=== PATIENT | male | born 1935 | race Caucasian/White ===

== ENCOUNTER 2018-11-04 14:14 | Inpatient (IN) ==
[2018-11-04 15:15] LABS: Hematocrit 36.3 % (42.0-52.0); Hemoglobin 11.6 gm/dL (13.5-18.0); Mean Cell Volume 97.3 fl (78-100); Mean Corpuscular Hemoglobin 31.1 pg (27-31); Mean Platelet Volume 10.3 fl (8-11.3); Platelet Count 161 K/mm3 (150-450); Red Blood Count 3.73 M/mm3 (4.7-6.0); Red Cell Distribution Width 14.6 % (11.5-14.0); White Blood Count 20.9 K/mm3 (4.0-10.5)
[2018-11-04 15:21] LABS: Total Cells Counted 100
[2018-11-04 15:29] LABS: Albumin * 2.4 gm/dl (3.4-5.0); Anion Gap 13.4 mmol/L (6.8-13.8); BUN/Creatinine Ratio 15.9 (9.0-21.6); Bilirubin, Total 1.2 mg/dL (0.0-1.1); Carbon Dioxide 27.3 mmol/L (24-32.6); Potassium 4.7 mmol/L (3.4-4.6); Total Protein 7.2 gm/dL (6.2-8.2)
[2018-11-04 15:33] LABS: Eosinophil 1 % (0-3); Lymphocyte 8 % (20-51); Monocyte 7 % (0-9); Neutrophil 84 % (42-75); Neutrophil # 17.6 K/mm3 (1.3-6.0); Platelet Estimate Normal (NORMAL)
[2018-11-04 15:34] LABS: Anisocytosis Trace; Poikilocytosis Trace
[2018-11-04 15:59] LABS: INR 3.38 INR (0.92-1.08); Prothrombin Time (Patient) 31.9 Seconds (9.1-10.7)
[2018-11-04 16:00] LABS: Partial Thrombolplastin Time 54.4 Seconds (24-32)
[2018-11-04 17:15] LABS: Urine Bilirubin Negative (NEGATIVE); Urine Blood 50 /ul (NEGATIVE); Urine Ketone Negative (NEGATIVE); Urine Nitrite Negative (NEGATIVE); Urine Protein 30 mg/dL (NEGATIVE); Urine Specific Gravity 1.025 SP.GR. (1.005-1.030); Urine Urobilinogen Normal (NORMAL)
[2018-11-04 17:26] LABS: Urine Appearance Clear (CLEAR); Urine Color Pale Yellow; Urine RBC 0-5 /hpf (0-5); Urine WBC None Seen /hpf (0-5)
[2018-11-04 17:27] LABS: Urine Bacteria TRACE
--- NOTE | 2018-11-04 18:12 | ERNOTE ---
Trauma/Assault HPI - Narrative Date of Service: 11/04/18 - General Stated Complaint: fall hip pain Time Seen by Provider: 11/04/18 14:32 Source: patient, family Exam Limitations: no limitations - Immun/Allergies/Home Medications Immunizations: IMMUNIZATION HX Immunizations Up to Date Yes History of Influenza Vaccine Yes Hx Pneumococcal Vaccination Yes Allergies/Adverse Reactions: Allergies atorvastatin [From Lipitor] Allergy (Verified 11/04/18 14:22) Muscle Spasms cortisone [Cortisone] Allergy (Verified 11/04/18 14:22) fenofibrate nanocrystallized [From Tricor] Allergy (Verified 11/04/18 14:22) fenofibrate,micronized [From Tricor] Allergy (Verified 11/04/18 14:22) Home Medications: HOME MEDICATIONS Calcium Carbonate/Vitamin D3 [Calcium 600 + Vit D 400 Tablet] 1 ea PO 1200 04/23/14 [Last Taken Unknown] Glucosam/Chondr/Collagn/Hyalur [Glucosamine & Chondroitin Cap] 1 ea PO BID 04/23/14 [Last Taken Unknown] Aspirin 81 mg PO DAILY 06/19/17 [Last Taken Unknown] dutasteride 0.5 mg capsule 0.5 mg PO DAILY 05/10/18 [Last Taken Unknown] geriatric multivit with iron and minerals tablet 1 tab PO DAILY 05/10/18 [Last Taken Unknown] warfarin 4 mg tablet 4 mg PO DAILY #30 tab 09/12/18 [Last Taken Unknown] mirtazapine 15 mg tablet 15 mg PO DAILY #60 tab 10/03/18 [Last Taken Unknown] ferrous sulfate 325 mg (65 mg iron) tablet 325 mg PO DAILY 11/01/18 [Last Taken Unknown] warfarin 2 mg tablet 2 mg PO Q OTHER DAY 11/01/18 [Last Taken Unknown] levothyroxine 137 mcg tablet 137 mcg PO DAILY #30 tab 11/02/18 [Last Taken Unknown] Carvedilol [Coreg] 6.25 mg PO BID 11/04/18 [Last Taken Unknown] - History of Present Illness Narrative: patient has had progressiiive wweakness for last several weeks with frequent fall, hx of a-fib and chf, recently has had elevated inr and pharmacy has been regulating to adjust Location Occurred: Reports: home Pain Location: Reports: lower extremity Method of Injury: Reports: fall Severity: mild Modifying Factors - (Improves): Reports: rest Modifying Factors - (Worsens): Reports: movement Loss of Consciousness: Reports: no loss of consciousness Associated Symptoms - Trauma: Reports: denies symptoms Review of Systems - Review of Systems Constitutional: Present: See HPI, weakness, fatigue, malaise EYE: Present: no symptoms reported ENT: Present: no symptoms reported Respiratory: Present: See HPI, shortness of breath Cardiology: Present: no symptoms reported Gastrointestinal/Abdominal: Present: no symptoms reported Genitourinary: Present: no symptoms reported Musculoskeletal: Present: See HPI, muscle pain, muscle stiffness, joint pain Skin: Present: no symptoms reported Neurological: Present: no symptoms reported Endocrine: Present: no symptoms reported Hematologic/Lymphatic: Present: no symptoms reported Psych: Present: no symptoms reported All Other Systems: All systems neg except as marked Medical History (Updated 09/13/18 @ 18:53 by Juice Edouard DO) Olecranon bursitis of left elbow (Chronic) Allowed to auto resolve. Reevaluate in 2 months. 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) Falls frequently (Acute) Contusion of left hip (Acute) Acute hip pain (Acute) BPH (benign prostatic hyperplasia) (Chronic) Major depressive disorder, recurrent, moderate (Chronic) Depressive disorder (Chronic) Rule out major depressive disorder Insomnia (Acute) Generalized anxiety disorder (Acute) Atrial fibrillation (Chronic) Anxiety Atrial fibrillation Chronic knee pain Depression Diabetes Enlarged prostate Falls frequently Hypothyroid Insomnia Seasonal allergic rhinitis Short-term memory loss Vertigo Cornea transplant recipient History of transesophageal echocardiography (LEDY) Lower GI bleed Surgical History: Surgical History (Updated 07/29/18 @ 13:59 by Brook Crespo LPN) Aortic aneurysm Hernia History of arthroscopic knee surgery History of cardiac cath History of heart valve replacement Hx of appendectomy Family History: Family History (Updated 05/10/18 @ 10:53 by Bessy Sanchez LPN) Father CVA (cerebral vascular accident) Alcoholism Mother CVA (cerebral vascular accident) Cancer Social History: (Last Reviewed 11/04/18 @ 14:30 by Bessie Duckworth RN) Social History: adopted: No foster care: No senior care: No Marital status: / lives independently: Yes household members: none number of children: 4 caregiver/support person: No current occupational status: retired Highest education level completed: high school graduate Tobacco: Smoking Status: Never smoker Alcohol: alcohol intake: never Substance Use: substance use type: does not use Dietary Habits: caffeine: No Physical Exam - Physical Exam General Appearance: Present: mild distress, anxious Head Exam: Present: normal inspection, no evidence of injury Eye Exam: Normal inspection: bilateral, PERRL: bilateral, EOMI: bilateral Ears, Nose, Throat: Present: normal ENT inspection, normal pharynx Neck: Present: normal inspection, nontender Respiratory: Present: no respiratory distress, crackles, rales Cardiovascular/Chest: Present: irregularly irregular Gastrointestinal/Abdominal: Present: normal bowel sounds, nontender, nondistended, soft, no organomegaly Back Exam: Present: normal inspection, normal range of motion, no CVA tenderness Extremity Exam: Present: normal except - - pain over right greater trochanter Neurological Exam: Present: alert, oriented, normal mood/affect, no motor/sensory deficits Skin Exam: Present: normal color, warm/dry Lymphatic Exam: Present: no adenopathy - C-Spine cleared by: Neg history & exam Progress - Date and Time Seen: Date and Time: 11/04/18 18:21 condition unchanged - Results and Orders Patient's Lab Results:: I have reviewed the patient's lab results. - Vital Signs Patient's Vital Signs:: I have reviewed the patient's vital signs. Vital Signs: Vital Signs 11/04/18 14:15 11/04/18 16:17 11/04/18 16:21 Temperature 36.8 C Pulse Rate 120 H 93 93 Respiratory Rate 14 20 Blood Pressure 123/67 111/59 O2 Sat by Pulse Oximetry 96 95 11/04/18 16:59 11/04/18 17:11 Temperature Pulse Rate 105 H 94 Respiratory Rate 21 H 18 Blood Pressure 105/64 102/68 O2 Sat by Pulse Oximetry 94 95 - EKG EKG #1 EKG: atrial fibrillation EKG read: Interp. by me - X-Ray X-Ray #1 X-Ray: hip - hip no ossus deformity Interpretation: Interp. by me - cardiomegaly, possiblre pneumonia - Progress/Reassessment Chief Complaint: Fall Progress:: Unchanged - Transfer of Care Expected Disposition: Admit Plan - Plan Plan: case discussed with dr lagunas too admit to observation r/o pneumonia Departure Clinical Impression: Pneumonia - Departure Disposition: Short Term Hospital Inpatient Condition: Stable Critical Care Time - Critical Care Critical Time Spent:: No
[2018-11-04] MEDS ORDERED: DILTIAZEM HCL 5 MG/ML VIAL IV ONE (18:32)
[2018-11-04] MEDS: NORMAL SALINE 1,000 ML IV PRN (19:03)
[2018-11-04] MEDS ORDERED: ACETAMINOPHEN 325 MG TABLET PO PRN (21:25)
[2018-11-04] MEDS ORDERED: MELATONIN 3,000 MCG TABLET PO PRN (22:11)
--- NOTE | 2018-11-04 22:16 | HP ---
Chief Complaint - Chief Complaint Date of Service: 11/04/18 Time of Service: 22:18 Chief Complaint: I have been feeling weak, and had multiple falls, and I have had chills History of Present Illness: 82-year-old male with past medical history of atrial fibrillation, currently on anticoagulants, depression, cardiac valve replacement, anxiety disorder, insomnia, BPH, hypothyroidism, issues with balance, was evaluated in the ER due to recently reported generalized weakness and multiple unexplained falls patient also reports persistent productive cough that is worse in the morning. However he denied any fever but says sometimes he gets chills. Patient had a normal temperature upon arriving to our facility. Patient's family reported to the ER physician that he has not been himself it appears more confused than usual, they did report an episode where the patient was unable to complete a sentence. Patient had a recent fall where he fell on his left side and subsequently reported right hip pain but x-ray of the involved limb done in the ER today was negative for any acute fractures. Chest x-ray was also performed and that was negative for any acute cardiopulmonary findings. However labs done on admission demonstrate an elevated WBC and elevated BNP. Given this patient's progressive weakness, productive cough, and reported occasional chills as well as an leukocytosis on labs patient will be admitted for observation and a rule out of bronchopneumonia. Medical History (Updated 11/04/18 @ 22:16 by Cortney Vasquez MD) Olecranon bursitis of left elbow (Chronic) Allowed to auto resolve. Reevaluate in 2 months. 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) Falls frequently (Acute) Contusion of left hip (Acute) Acute hip pain (Acute) BPH (benign prostatic hyperplasia) (Chronic) Major depressive disorder, recurrent, moderate (Chronic) Depressive disorder (Chronic) Rule out major depressive disorder Insomnia (Acute) Generalized anxiety disorder (Acute) Atrial fibrillation (Chronic) Anxiety Atrial fibrillation Chronic knee pain Depression Diabetes Enlarged prostate Falls frequently Hypothyroid Insomnia Seasonal allergic rhinitis Short-term memory loss Vertigo Cornea transplant recipient History of transesophageal echocardiography (LEDY) Lower GI bleed Surgical History: Surgical History (Updated 11/04/18 @ 22:16 by Cortney Vasquez MD) Aortic aneurysm Hernia History of arthroscopic knee surgery History of cardiac cath History of heart valve replacement Hx of appendectomy Family History: Family History (Updated 05/10/18 @ 10:53 by Bessy Sanchez LPN) Father CVA (cerebral vascular accident) Alcoholism Mother CVA (cerebral vascular accident) Cancer Social History: (Last Reviewed 11/04/18 @ 21:06 by Samra Smith RN) Social History: adopted: No foster care: No half-way: No Marital status: / lives independently: Yes household members: none number of children: 4 caregiver/support person: No current occupational status: retired Highest education level completed: high school graduate Tobacco: Smoking Status: Never smoker Alcohol: alcohol intake: never Substance Use: substance use type: does not use Dietary Habits: caffeine: No Review Of Systems (GEN) - Review of Systems Generalized/Overall Review: Present: Weakness, Chills EENTM: Present: No Symptoms Reported Respiratory: Present: Cough Cardiac: Present: No Symptoms Reported Abdominal: Present: No Symptoms Reported Genitourinary: Present: No Symptoms Reported Musculoskeletal: Present: Joint Pain - Left upper extremity pain left hip pain Neurological: Present: No Symptoms Reported Skin: Present: Change in Color - Large hematoma in left upper extremity Endocrine: Present: No Symptoms Reported Immunizations: IMMUNIZATION HX Immunizations Up to Date Yes History of Influenza Vaccine Yes Hx Pneumococcal Vaccination Yes Allergies/Adverse Reactions: Allergies Allergy/AdvReac Type Severity Reaction Status Date / Time atorvastatin [From Lipitor] Allergy Muscle Verified 11/04/18 14:22 Spasms cortisone [Cortisone] Allergy Verified 11/04/18 14:22 fenofibrate nanocrystallized Allergy Verified 11/04/18 14:22 [From Tricor] fenofibrate,micronized Allergy Verified 11/04/18 14:22 [From Tricor] Home Medications: HOME MEDICATIONS Calcium Carbonate/Vitamin D3 [Calcium 600 + Vit D 400 Tablet] 1 ea PO DAILY 04/23/14 [Last Taken Unknown] Glucosam/Chondr/Collagn/Hyalur [Glucosamine & Chondroitin Cap] 1 ea PO BID 04/23/14 [Last Taken Unknown] Aspirin 81 mg PO DAILY 06/19/17 [Last Taken Unknown] dutasteride 0.5 mg capsule 0.5 mg PO DAILY 05/10/18 [Last Taken Unknown] geriatric multivit with iron and minerals tablet 1 tab PO DAILY 05/10/18 [Last Taken Unknown] warfarin 4 mg tablet 4 mg PO DAILY #30 tab 09/12/18 [Last Taken Unknown] ferrous sulfate 325 mg (65 mg iron) tablet 325 mg PO DAILY 11/01/18 [Last Taken Unknown] warfarin 2 mg tablet 2 mg PO Q OTHER DAY 11/01/18 [Last Taken Unknown] levothyroxine 137 mcg tablet 137 mcg PO DAILY #30 tab 11/02/18 [Last Taken Unknown] Carvedilol [Coreg] 6.25 mg PO BID 11/04/18 [Last Taken Unknown] Mirtazapine [Remeron] 15 mg PO HS 11/04/18 [Last Taken Unknown] Exam - Exam Vital Signs: Vital Signs - Last Taken Temp 37.5 C 11/04/18 21:16 Pulse 98 11/04/18 21:16 Resp 20 11/04/18 21:16 BP 106/77 11/04/18 21:16 Pulse Ox 97 11/04/18 21:16 Constitutional: Present: Alert, Cooperative, Well developed, Well nourished, No distress, Elderly ENT Exam: Present: normal ENT inspection, pharynx normal, hard of hearing Eye Exam: bilateral eye: normal inspection, PERRL, EOMI Neck: Present: non-tender, full range of motion, supple, normal inspection, trachea midline Back Exam: Present: normal inspection, no CVA tenderness, no vertebral tenderness Breasts: Present: Exam deferred Respiratory: Present: lungs clear Cardiovascular/Chest: Present: normal peripheral pulses, no chest tenderness, no edema, no gallop, no JVD, irregularly irregular Peripheral Pulses: carotid (R): 3+, carotid (L): 3+, femoral (R): 3+, femoral (L): 3+, dorsalis-pedis (R): 3+, dorsalis-pedis (L): 3+ Abdomen: Present: Normal bowel sounds, soft, nontender, nondistended, no rebound tenderness, no hepatospenomegaly, no masses, obese /Rectal: Present: Exam deferred Extremity: Present: normal range of motion, no pedal edema, no calf tenderness, normal capillary refill, other - Large hematoma on left upper extremity with tenderness to palpation tenderness Skin Exam: Present: other - Large hematoma extending from biceps to left forearm of left upper extremity Lymphatic: Present: no adenopathy Neurologic: Present: no motor/sensory deficits, alert, normal mood/affect, disoriented x 3 Appearance: Present: appropriate appearance, impaired insight, impaired recent memory, impaired remote memory Eye contact: Present: cooperative, good eye contact, normal speech Thoughts: Present: normal mood /affect Diagnostic Studies: Abnormal Lab Results 11/04/18 11/04/18 11/04/18 Range/Units 15:00 15:10 15:10 WBC 20.9 H (4.0-10.5) K/mm3 RBC 3.73 L (4.7-6.0) M/mm3 Hgb 11.6 L (13.5-18.0) gm/dL Hct 36.3 L (42.0-52.0) % MCH 31.1 H (27-31) pg RDW 14.6 H (11.5-14.0) % Neutrophils % (Manual) 84 H (42-75) % Lymphocytes % (Manual) 8 L (20-51) % Neutrophils # (Manual) 17.6 H (1.3-6.0) K/mm3 Monocytes # (Manual) 1.5 H (0.0-1.0) k/mm3 PT 31.9 H (9.1-10.7) Seconds INR (Anticoag Therapy) 3.38 H (0.92-1.08) INR PTT ([place]) 54.4 H (24-32) Seconds Potassium (3.4-4.6) mmol/L Est GFR (Non-Af Amer) (60-130) mL/min Total Bilirubin (0.0-1.1) mg/dL C-Reactive Prot, Quant (0.0-0.9) mg/dL B-Natriuretic Peptide 8085 H (5-650) pg/mL Albumin (3.4-5.0) gm/dl Urine Protein (NEGATIVE) mg/dL Urine Blood (NEGATIVE) /ul 11/04/18 11/04/18 11/04/18 Range/Units 15:10 15:10 17:05 WBC (4.0-10.5) K/mm3 RBC (4.7-6.0) M/mm3 Hgb (13.5-18.0) gm/dL Hct (42.0-52.0) % MCH (27-31) pg RDW (11.5-14.0) % Neutrophils % (Manual) (42-75) % Lymphocytes % (Manual) (20-51) % Neutrophils # (Manual) (1.3-6.0) K/mm3 Monocytes # (Manual) (0.0-1.0) k/mm3 PT (9.1-10.7) Seconds INR (Anticoag Therapy) (0.92-1.08) INR PTT ([place]) (24-32) Seconds Potassium 4.7 H (3.4-4.6) mmol/L Est GFR (Non-Af Amer) 52 L (60-130) mL/min Total Bilirubin 1.2 H (0.0-1.1) mg/dL C-Reactive Prot, Quant 17.0 H (0.0-0.9) mg/dL B-Natriuretic Peptide (5-650) pg/mL Albumin 2.4 L (3.4-5.0) gm/dl Urine Protein 30 H (NEGATIVE) mg/dL Urine Blood 50 H (NEGATIVE) /ul Laboratory Results WBC 20.9 K/mm3 (4.0-10.5) H 11/04/18 15:10 RBC 3.73 M/mm3 (4.7-6.0) L 11/04/18 15:10 Hgb 11.6 gm/dL (13.5-18.0) L 11/04/18 15:10 Hct 36.3 % (42.0-52.0) L 11/04/18 15:10 MCV 97.3 fl (78-100) 11/04/18 15:10 MCH 31.1 pg (27-31) H 11/04/18 15:10 MCHC 32.0 g/dl (32-36) 11/04/18 15:10 RDW 14.6 % (11.5-14.0) H 11/04/18 15:10 Plt Count 161 K/mm3 (150-450) 11/04/18 15:10 MPV 10.3 fl (8-11.3) 11/04/18 15:10 84 % (42-75) H 11/04/18 15:10 8 % (20-51) L 11/04/18 15:10 7 % (0-9) 11/04/18 15:10 1 % (0-3) 11/04/18 15:10 17.6 K/mm3 (1.3-6.0) H 11/04/18 15:10 1.7 k/mm3 (1.5-3.5) 11/04/18 15:10 1.5 k/mm3 (0.0-1.0) H 11/04/18 15:10 0.2 k/mm3 (0.0-0.7) 11/04/18 15:10 Normal (NORMAL) 11/04/18 15:10 Trace 11/04/18 15:10 Trace 11/04/18 15:10 PT 31.9 Seconds (9.1-10.7) H 11/04/18 15:10 INR (Anticoag Therapy) 3.38 INR (0.92-1.08) H 11/04/18 15:10 PTT ([place]) 54.4 Seconds (24-32) H 11/04/18 15:10 Sodium 139 mmol/L (132-142) 11/04/18 15:10 139 mmol/L (130-142) 11/04/18 15:10 Potassium 4.7 mmol/L (3.4-4.6) H 11/04/18 15:10 Chloride 103 mmol/L (97-106) 11/04/18 15:10 Carbon Dioxide 27.3 mmol/L (24-32.6) 11/04/18 15:10 13.4 mmol/L (6.8-13.8) 11/04/18 15:10 BUN 22 mg/dL (6-23) 11/04/18 15:10 1.38 mg/dL (0.4-1.4) 11/04/18 15:10 Est GFR (Non-Af Amer) 52 mL/min (60-130) L 11/04/18 15:10 15.9 (9.0-21.6) 11/04/18 15:10 110 mg/dL (70-110) 11/04/18 15:10 1.0 mmol/L (0.4-2.0) 11/04/18 15:10 Calcium 8.0 mg/dL (7.9-10.9) 11/04/18 15:10 Calcium Adj for Albumin 9.0 mg/dL (8.4-10.2) 11/04/18 15:10 1.2 mg/dL (0.0-1.1) H 11/04/18 15:10 AST 40 U/L (0-48) 11/04/18 15:10 ALT 30 U/L (19-67) 11/04/18 15:10 63 U/L (50-170) 11/04/18 15:10 C-Reactive Prot, Quant 17.0 mg/dL (0.0-0.9) H 11/04/18 15:10 B-Natriuretic Peptide 8085 pg/mL (5-650) H 11/04/18 15:00 7.2 gm/dL (6.2-8.2) 11/04/18 15:10 2.4 gm/dl (3.4-5.0) L 11/04/18 15:10 Pale yellow 11/04/18 17:05 Clear (CLEAR) 11/04/18 17:05 5.0 pH (5.0-7.0) 11/04/18 17:05 Ur Specific [place] 1.025 SP.GR. (1.005-1.030) 11/04/18 17:05 30 mg/dL (NEGATIVE) H 11/04/18 17:05 Negative mg/dL (NEGATIVE) 11/04/18 17:05 Negative mg/dL (NEGATIVE) 11/04/18 17:05 50 /ul (NEGATIVE) H 11/04/18 17:05 Negative (NEGATIVE) 11/04/18 17:05 Negative mg/dl (NEGATIVE) 11/04/18 17:05 Prot Sulfosalicylic Acd Negative mg/dL (0) 11/04/18 17:05 Normal EU/dl (NORMAL) 11/04/18 17:05 Ur Leukocyte Esterase Negative /ul (NEGATIVE) 11/04/18 17:05 0-5 /hpf (0-5) 11/04/18 17:05 None seen /hpf (0-5) 11/04/18 17:05 Ur Epithelial Cells None seen /hpf (0-5) 11/04/18 17:05 Trace (NONE) 11/04/18 17:05 Culture to follow 11/04/18 17:05 Assessment/Plan - Narrative Narrative: Patient was evaluated and medical chart was reviewed and decision to admit to [facility] for observation and a rule out of bronchopneumonia was made. In the meantime patient will be treated with IV antibiotics blood and urine cultures h ave been collected although urinalysis is negative for infection. Patient told me that he has a history of bacteremia for which she was treated more than 20 years ago, he also had multiple cardiac valve replaced. Labs also demonstrate a elevated CRP indicating acute infection. Given these findings I will follow-up with blood cultures in the morning to rule out bacteremia. His routine medications have been reconciled except for warfarin due to an elevated INR of 3.3. Patient has an elevated BNP however the clinical picture does not demonstrate decompensated CHF but given his cardiac history Lasix was ordered. Patient also has an increase BUN and creatinine which would indicate the need for IV hydration, therefore ER physician ordered IV fluids to be given which she tolerated well. I will not treat him with additional fluids to avoid fluid overload but patient will be watched closely. Repeat labs have been ordered to be done in the morning to reevaluate his leukocytosis and kidney function as well as his other electrolytes. - Assessment/Plan (1) CHF (congestive heart failure) Problem: Acute Qualifiers: Heart failure type: systolic (2) Community acquired bacterial pneumonia Problem: Acute (3) Falls frequently Problem: Chronic (4) Atrial fibrillation Problem: Chronic Qualifiers: Atrial fibrillation type: chronic Qualified Code(s): I48.2 - Chronic atrial fibrillation (5) Balance disorder Problem: Acute (6) Leukocytosis Problem: Acute (7) CRP elevated Problem: Acute
[2018-11-04] MEDS: FAMOTIDINE 20 MG in DEXTROSE 5 % IN WATER 100 ML IV SCH ×2 (23:25)
[2018-11-05] MEDS: NORMAL SALINE 1,000 ML IV PRN ×3 (03:19→18:58)
[2018-11-05 06:01] LABS: Hematocrit 29.8 % (42.0-52.0); Hemoglobin 9.7 gm/dL (13.5-18.0); Mean Cell Volume 93.4 fl (78-100); Mean Corpuscular Hemoglobin 30.4 pg (27-31); Mean Corpuscular Hgb Conc 32.6 g/dl (32-36); Mean Platelet Volume 9.6 fl (8-11.3); Platelet Count 168 K/mm3 (150-450); Red Blood Count 3.19 M/mm3 (4.7-6.0); Red Cell Distribution Width 14.6 % (11.5-14.0); White Blood Count 20.7 K/mm3 (4.0-10.5)
[2018-11-05 06:03] LABS: Total Cells Counted 100
[2018-11-05 06:06] LABS: Albumin * 1.9 gm/dl (3.4-5.0); Anion Gap 13.7 mmol/L (6.8-13.8); BUN/Creatinine Ratio 17.5 (9.0-21.6); Bilirubin, Total 0.8 mg/dL (0.0-1.1); Ca. Corrected For Albumin 8.8 mg/dL (8.4-10.2); Calcium * 7.4 mg/dL (7.9-10.9); Carbon Dioxide 24.4 mmol/L (24-32.6); Eosinophil 2 % (0-3); Lymphocyte 7 % (20-51); Monocyte 5 % (0-9); Neutrophil 86 % (42-75); Neutrophil # 17.8 K/mm3 (1.3-6.0); Platelet Estimate Normal (NORMAL); Potassium 4.1 mmol/L (3.4-4.6)
[2018-11-05 06:07] LABS: Hypochromia 2+
[2018-11-05] MEDS: FERROUS SULFATE 325 MG TABLET PO SCH (08:02)
[2018-11-05] MEDS: LEVOTHYROXINE SODIUM 137 MCG TABLET PO SCH (08:02)
[2018-11-05] MEDS: MULTIVIT-MIN/FA/LYCOPEN/LUTEIN 1 TAB TABLET PO SCH (08:02)
[2018-11-05] MEDS: CARVEDILOL 6.25 MG TABLET PO SCH ×2 (08:02→21:37)
[2018-11-05] MEDS: ASPIRIN 81 MG TAB.CHEW PO SCH (08:02)
[2018-11-05] MEDS: DOCUSATE SODIUM 100 MG CAPSULE PO SCH (08:02)
[2018-11-05] MEDS: CALCIUM CARBONATE/VITAMIN D3 1 TAB TABLET PO SCH (08:02)
[2018-11-05] MEDS: FUROSEMIDE 10 MG/ML VIAL IV SCH ×2 (09:53→20:22)
[2018-11-05] MEDS: FAMOTIDINE 20 MG in DEXTROSE 5 % IN WATER 100 ML IV SCH ×4 (10:18→21:41)
--- NOTE | 2018-11-05 10:55 | PN ---
Subjective - Date and Time Seen Date: 11/05/18 Time: 10:49 Objective Objective Narrative: I feel okay, I slept well. - Review of Systems Generalized/Overall Review: Reports: No Symptoms Reported EENTM: Reports: No Symptoms Reported Respiratory: Reports: No Symptoms Reported Cardiac: Reports: No Symptoms Reported Abdominal: Reports: No Symptoms Reported Genitourinary Symptoms: Reports: No Symptoms Reported Musculoskeletal Complaints: Reports: No Symptoms Reported Neurological: Reports: No Symptoms Reported Skin: Reports: No Symptoms Reported Endocrine: Reports: No Symptoms Reported - Vitals Vitals: Last Vital Signs Temp 37.0 C 11/05/18 07:53 Pulse 86 11/05/18 08:02 Resp 22 H 11/05/18 07:53 BP 104/57 11/05/18 08:02 Pulse Ox 98 11/05/18 07:53 - Abnormal Lab Findings Abnormal Lab Findings: Abnormal Lab Results 11/04/18 11/04/18 11/04/18 Range/Units 15:00 15:10 15:10 WBC 20.9 H (4.0-10.5) K/mm3 RBC 3.73 L (4.7-6.0) M/mm3 Hgb 11.6 L (13.5-18.0) gm/dL Hct 36.3 L (42.0-52.0) % MCH 31.1 H (27-31) pg RDW 14.6 H (11.5-14.0) % Neutrophils % (Manual) 84 H (42-75) % Lymphocytes % (Manual) 8 L (20-51) % Neutrophils # (Manual) 17.6 H (1.3-6.0) K/mm3 Lymphocytes # (Manual) (1.5-3.5) k/mm3 Monocytes # (Manual) 1.5 H (0.0-1.0) k/mm3 PT 31.9 H (9.1-10.7) Seconds INR (Anticoag Therapy) 3.38 H (0.92-1.08) INR PTT ([place]) 54.4 H (24-32) Seconds Potassium (3.4-4.6) mmol/L Chloride (97-106) mmol/L Est GFR (Non-Af Amer) (60-130) mL/min Random Glucose (70-110) mg/dL Calcium (7.9-10.9) mg/dL Total Bilirubin (0.0-1.1) mg/dL C-Reactive Prot, Quant (0.0-0.9) mg/dL B-Natriuretic Peptide 8085 H (5-650) pg/mL Total Protein (6.2-8.2) gm/dL Albumin (3.4-5.0) gm/dl Urine Protein (NEGATIVE) mg/dL Urine Blood (NEGATIVE) /ul 11/04/18 11/04/18 11/04/18 Range/Units 15:10 15:10 17:05 WBC (4.0-10.5) K/mm3 RBC (4.7-6.0) M/mm3 Hgb (13.5-18.0) gm/dL Hct (42.0-52.0) % MCH (27-31) pg RDW (11.5-14.0) % Neutrophils % (Manual) (42-75) % Lymphocytes % (Manual) (20-51) % Neutrophils # (Manual) (1.3-6.0) K/mm3 Lymphocytes # (Manual) (1.5-3.5) k/mm3 Monocytes # (Manual) (0.0-1.0) k/mm3 PT (9.1-10.7) Seconds INR (Anticoag Therapy) (0.92-1.08) INR PTT ([place]) (24-32) Seconds Potassium 4.7 H (3.4-4.6) mmol/L Chloride (97-106) mmol/L Est GFR (Non-Af Amer) 52 L (60-130) mL/min Random Glucose (70-110) mg/dL Calcium (7.9-10.9) mg/dL Total Bilirubin 1.2 H (0.0-1.1) mg/dL C-Reactive Prot, Quant 17.0 H (0.0-0.9) mg/dL B-Natriuretic Peptide (5-650) pg/mL Total Protein (6.2-8.2) gm/dL Albumin 2.4 L (3.4-5.0) gm/dl Urine Protein 30 H (NEGATIVE) mg/dL Urine Blood 50 H (NEGATIVE) /ul 11/05/18 11/05/18 Range/Units 05:52 05:52 WBC 20.7 H (4.0-10.5) K/mm3 RBC 3.19 L (4.7-6.0) M/mm3 Hgb 9.7 L (13.5-18.0) gm/dL Hct 29.8 L (42.0-52.0) % MCH (27-31) pg RDW 14.6 H (11.5-14.0) % Neutrophils % (Manual) 86 H (42-75) % Lymphocytes % (Manual) 7 L (20-51) % Neutrophils # (Manual) 17.8 H (1.3-6.0) K/mm3 Lymphocytes # (Manual) 1.4 L (1.5-3.5) k/mm3 Monocytes # (Manual) (0.0-1.0) k/mm3 PT (9.1-10.7) Seconds INR (Anticoag Therapy) (0.92-1.08) INR PTT ([place]) (24-32) Seconds Potassium (3.4-4.6) mmol/L Chloride 107 H (97-106) mmol/L Est GFR (Non-Af Amer) (60-130) mL/min Random Glucose 113 H (70-110) mg/dL Calcium 7.4 L (7.9-10.9) mg/dL Total Bilirubin (0.0-1.1) mg/dL C-Reactive Prot, Quant (0.0-0.9) mg/dL B-Natriuretic Peptide (5-650) pg/mL Total Protein 6.0 L (6.2-8.2) gm/dL Albumin 1.9 L (3.4-5.0) gm/dl Urine Protein (NEGATIVE) mg/dL Urine Blood (NEGATIVE) /ul - Exam Constitutional: Present: Alert, Cooperative, Well developed, Well nourished, No distress ENT Exam: Present: normal ENT inspection, pharynx normal, hard of hearing Neck: Present: non-tender, full range of motion, supple, normal inspection, trachea midline Breasts: Present: Exam deferred Respiratory: Present: chest non-tender, lungs clear, normal breath sounds, no respiratory distress, no accessory muscle use Cardiovascular/Chest: Present: normal peripheral pulses, regular rate, rhythm, no chest tenderness, no edema, no gallop, no JVD, no murmur, no rub Abdomen: Present: Normal bowel sounds, soft, nontender, nondistended, no rebound tenderness, no hepatospenomegaly, no masses /Rectal: Present: Exam deferred Extremity: Present: normal range of motion, non-tender, normal inspection, no pedal edema, no calf tenderness, normal capillary refill Skin Exam: Present: normal color, warm/dry, no cyanosis Lymphatic: Present: no adenopathy Neurologic: Present: animal feeder II-XII nml as tested, normal cerebellar test, no motor/sensory deficits, alert, normal mood/affect, oriented x 3 Appearance: Present: appropriate appearance, impaired recent memory, impaired remote memory Eye contact: Present: cooperative, good eye contact, normal speech Thoughts: Present: normal thought pattern Assessment/Plan Plan Narrative: 82-year-old male admitted for CHF and suspected pneumonia was evaluated at bedside was found to be afebrile and in no acute distress, patient had an uneventful evening/night and reports that he slept well. This morning he denies any pain or any new symptoms and his vitals remained stable. Follow-up labs did not demonstrate any change or improvement in his WBCs and hemoglobin has decreased likely secondary to hemodilution due to IV hydration. Patient has not presented any fevers or chills, urine cultures are negative and blood cultures are pending. Discharge planning is being discussed with case management who is contacting his family for their thoughts on discharge and whether patient to go. In the meantime we will continue to monitor him closely and follow-up with further lab results. - Problems/Diagnosis (1) CHF (congestive heart failure) Problem: Resolved Qualifiers: Heart failure type: systolic (2) Community acquired bacterial pneumonia Problem: Suspected (3) Falls frequently Problem: Chronic (4) Atrial fibrillation Problem: Chronic Qualifiers: Atrial fibrillation type: chronic Qualified Code(s): I48.2 - Chronic atrial fibrillation (5) Balance disorder Problem: Acute (6) Leukocytosis Problem: Acute (7) CRP elevated Problem: Acute
[2018-11-05 11:04] LABS: Prothrombin Time (Patient) 29.1 Seconds (9.1-10.7)
[2018-11-05 11:05] LABS: INR 3.07 INR (0.92-1.08)
[2018-11-05] MEDS ORDERED: NORMAL SALINE 500 ML IV ONE (20:18)
[2018-11-05] MEDS ORDERED: LORazepam 1 MG TABLET PO ONE (20:20)
[2018-11-05] MEDS: MIRTAZAPINE 15 MG TABLET PO SCH (20:35)
[2018-11-06] MEDS: LEVOTHYROXINE SODIUM 137 MCG TABLET PO SCH (05:08)
[2018-11-06] MEDS: NORMAL SALINE 1,000 ML IV PRN ×2 (05:08→16:37)
[2018-11-06] MEDS: CARVEDILOL 6.25 MG TABLET PO SCH ×2 (09:05→21:14)
[2018-11-06] MEDS: ASPIRIN 81 MG TAB.CHEW PO SCH (09:05)
[2018-11-06] MEDS: CALCIUM CARBONATE/VITAMIN D3 1 TAB TABLET PO SCH (09:05)
[2018-11-06] MEDS: DOCUSATE SODIUM 100 MG CAPSULE PO SCH (09:05)
[2018-11-06] MEDS: MULTIVIT-MIN/FA/LYCOPEN/LUTEIN 1 TAB TABLET PO SCH (09:05)
[2018-11-06] MEDS: FERROUS SULFATE 325 MG TABLET PO SCH (09:05)
[2018-11-06] MEDS: FAMOTIDINE 20 MG in DEXTROSE 5 % IN WATER 100 ML IV SCH ×4 (10:23→21:13)
[2018-11-06 12:23] LABS: Hematocrit 29.3 % (42.0-52.0); Hemoglobin 9.4 gm/dL (13.5-18.0); Mean Cell Volume 95.8 fl (78-100); Mean Corpuscular Hemoglobin 30.7 pg (27-31); Mean Corpuscular Hgb Conc 32.1 g/dl (32-36); Mean Platelet Volume 9.4 fl (8-11.3); Neutrophil % 87.4 % (42-75.0); Platelet Count 159 K/mm3 (150-450); Red Blood Count 3.06 M/mm3 (4.7-6.0); Red Cell Distribution Width 14.8 % (11.5-14.0); White Blood Count 19.5 K/mm3 (4.0-10.5)
--- NOTE | 2018-11-06 12:49 | PN ---
Subjective - Date and Time Seen Date: 11/06/18 Time: 12:39 Subjective Narrative: I feel okay but kind of shaky Objective Objective Narrative: 82-year-old male admitted for generalized weakness, CHF, suspected bronchopneumonia, and SIRS was evaluated at bedside and was found to be afebrile and in no acute distress. Patient presents with clinical vitals, his heart rate has been adequately controlled however this morning's labs demonstrated persistent leukocytosis despite IV antibiotics. Microbiology department reported growth of gram-positive cocci on blood cultures indicating a bacteremia. Therefore patient will be treated with IV vancomycin in addition to the original antibiotics that he was on. Given the patient's history of multiple cardiac valve replacements and echocardiogram was ordered for tomorrow morning to rule out endocarditis. Patient was evaluated at bedside for any signs of endocarditis such as [place] lesions or any other embolic lesions indicating endocarditis by staph aureus but none were found. There has not been any fever reported but nursing staff reports increasing confusion that is worse at night. - Review of Systems Generalized/Overall Review: Reports: No Symptoms Reported EENTM: Reports: No Symptoms Reported Respiratory: Reports: No Symptoms Reported Cardiac: Reports: No Symptoms Reported Abdominal: Reports: No Symptoms Reported Genitourinary Symptoms: Reports: No Symptoms Reported Musculoskeletal Complaints: Reports: No Symptoms Reported Neurological: Reports: Pre-existing Deficit - Increasing confusion and memory loss Skin: Reports: Bruising, Other - Large hematoma left upper extremity Endocrine: Reports: No Symptoms Reported - Vitals Vitals: Last Vital Signs Temp 36.6 C 11/06/18 11:14 Pulse 78 11/06/18 11:14 Resp 16 11/06/18 11:14 BP 108/69 11/06/18 11:14 Pulse Ox 100 11/06/18 11:14 - Abnormal Lab Findings Abnormal Lab Findings: Abnormal Lab Results 11/06/18 Range/Units 12:21 WBC 19.5 H (4.0-10.5) K/mm3 RBC 3.06 L (4.7-6.0) M/mm3 Hgb 9.4 L (13.5-18.0) gm/dL Hct 29.3 L (42.0-52.0) % RDW 14.8 H (11.5-14.0) % Immature Gran % (Auto) 2.30 H (0.001-0.429) % Immature Gran # (Auto) 0.45 H (0.000-0.0310) K/mm3 Neutrophils % 87.4 H (42-75.0) % Lymphocytes % 3.7 L (20-51) % Neutrophils # 17.0 H (1.3-6.0) K/mm3 Lymphocytes # 0.72 L (1.5-3.5) k/mm3 Monocytes # 1.1 H (0.0-1.0) k/mm3 - Exam Constitutional: Present: Alert, Cooperative, Well developed, Well nourished, No distress, Elderly ENT Exam: Present: normal ENT inspection, pharynx normal, TMs normal, hard of hearing Neck: Present: non-tender, full range of motion, supple, normal inspection, trachea midline Breasts: Present: Exam deferred Respiratory: Present: chest non-tender, lungs clear, normal breath sounds, no respiratory distress, no accessory muscle use Cardiovascular/Chest: Present: normal peripheral pulses, no chest tenderness, no edema, no gallop, no JVD, no murmur, no rub, irregularly irregular Abdomen: Present: Normal bowel sounds, soft, nontender, nondistended, no rebound tenderness, no hepatospenomegaly, no masses, obese /Rectal: Present: Exam deferred Extremity: Present: normal range of motion, non-tender, no pedal edema, no calf tenderness, normal capillary refill, other - Large hematoma extending from biceps down to wrist on left upper extrema Lymphatic: Present: no adenopathy Neurologic: Present: abstract writer II-XII nml as tested, no motor/sensory deficits, alert, normal mood/affect, disoriented x 3 Appearance: Present: neat, impaired insight, impaired recent memory, impaired remote memory Eye contact: Present: cooperative, good eye contact, normal speech Thoughts: Present: normal thought pattern, no apparent hallucination Assessment/Plan - Problems/Diagnosis (1) CHF (congestive heart failure) Problem: Resolved Qualifiers: Heart failure type: systolic (2) Community acquired bacterial pneumonia Problem: Suspected (3) Falls frequently Problem: Chronic (4) Atrial fibrillation Problem: Chronic Qualifiers: Atrial fibrillation type: chronic Qualified Code(s): I48.2 - Chronic atrial fibrillation (5) Balance disorder Problem: Chronic (6) Leukocytosis Problem: Acute (7) CRP elevated Problem: Acute (8) Bacteremia Problem: Acute (9) Bacteremia Problem: Acute
[2018-11-06 13:14] LABS: INR 2.19 INR (0.92-1.08)
[2018-11-06] MEDS: VANCOMYCIN HCL 1 GM in DEXTROSE 5 % IN WATER 250 ML IV SCH ×2 (13:24)
[2018-11-06] MEDS: MIRTAZAPINE 15 MG TABLET PO SCH (21:13)
[2018-11-06] MEDS: SACCHAROMYCES BOULARDII 250 MG CAPSULE PO SCH (21:14)
[2018-11-07] MEDS: VANCOMYCIN HCL 1 GM in DEXTROSE 5 % IN WATER 250 ML IV SCH ×4 (00:58→13:34)
[2018-11-07] MEDS: NORMAL SALINE 1,000 ML IV PRN (03:42)
[2018-11-07] MEDS: LEVOTHYROXINE SODIUM 137 MCG TABLET PO SCH (05:47)
[2018-11-07] MEDS: CALCIUM CARBONATE/VITAMIN D3 1 TAB TABLET PO SCH (10:33)
[2018-11-07] MEDS: SACCHAROMYCES BOULARDII 250 MG CAPSULE PO SCH ×2 (10:33→21:27)
[2018-11-07] MEDS: ASPIRIN 81 MG TAB.CHEW PO SCH (10:33)
[2018-11-07] MEDS: MULTIVIT-MIN/FA/LYCOPEN/LUTEIN 1 TAB TABLET PO SCH (10:33)
[2018-11-07] MEDS: FERROUS SULFATE 325 MG TABLET PO SCH (10:33)
[2018-11-07] MEDS: CARVEDILOL 6.25 MG TABLET PO SCH ×2 (10:33→21:27)
[2018-11-07] MEDS: DOCUSATE SODIUM 100 MG CAPSULE PO SCH (10:33)
[2018-11-07] MEDS: FAMOTIDINE 20 MG in DEXTROSE 5 % IN WATER 100 ML IV SCH ×2 (10:45)
[2018-11-07 11:50] LABS: Hemoglobin 9.8 gm/dL (13.5-18.0); Mean Corpuscular Hemoglobin 30.7 pg (27-31); Mean Corpuscular Hgb Conc 32.7 g/dl (32-36); Mean Platelet Volume 9.7 fl (8-11.3); Platelet Count 151 K/mm3 (150-450); Red Blood Count 3.19 M/mm3 (4.7-6.0); Red Cell Distribution Width 14.9 % (11.5-14.0); White Blood Count 19.8 K/mm3 (4.0-10.5)
[2018-11-07 11:57] LABS: Total Cells Counted 100
--- NOTE | 2018-11-07 11:58 | PN ---
Subjective - Date and Time Seen Date: 11/07/18 Time: 11:36 Subjective Narrative: Patient rambles on and on and does not make much sense but appears comfortable. Objective Objective Narrative: 82-year-old male admitted for generalized weakness, increasing confusion, recent falls and now confirmed bacteremia possibly by staph aureus. Blood cultures were reported yesterday and vancomycin was immediately added to the patient's treatment. This morning CBC to evaluate leukocytosis is pending we will follow-up with results. Given the patient's history of cardiac valve replacement echocardiogram was ordered to rule out endocarditis. Clinically he is stable he appears comfortable and denies any new symptoms, however he continues to present confusion that is worse in the evening whether or not this is new for him I am not sure however we will continue to monitor. We will follow-up with echocardiogram results. - Review of Systems Generalized/Overall Review: Reports: No Symptoms Reported EENTM: Reports: No Symptoms Reported Respiratory: Reports: No Symptoms Reported Cardiac: Reports: No Symptoms Reported Abdominal: Reports: No Symptoms Reported Genitourinary Symptoms: Reports: No Symptoms Reported Musculoskeletal Complaints: Reports: No Symptoms Reported Neurological: Reports: No Symptoms Reported Skin: Reports: Bruising, Other - Large hematoma on left upper extremity Endocrine: Reports: No Symptoms Reported - Vitals Vitals: Last Vital Signs Temp 36.8 C 11/07/18 11:03 Pulse 92 11/07/18 11:03 Resp 24 H 11/07/18 11:03 BP 134/86 11/07/18 11:03 Pulse Ox 95 11/07/18 11:03 - Abnormal Lab Findings Abnormal Lab Findings: Abnormal Lab Results 11/06/18 11/06/18 Range/Units 12:21 13:02 WBC 19.5 H (4.0-10.5) K/mm3 RBC 3.06 L (4.7-6.0) M/mm3 Hgb 9.4 L (13.5-18.0) gm/dL Hct 29.3 L (42.0-52.0) % RDW 14.8 H (11.5-14.0) % Immature Gran % (Auto) 2.30 H (0.001-0.429) % Immature Gran # (Auto) 0.45 H (0.000-0.0310) K/mm3 Neutrophils % 87.4 H (42-75.0) % Lymphocytes % 3.7 L (20-51) % Neutrophils # 17.0 H (1.3-6.0) K/mm3 Lymphocytes # 0.72 L (1.5-3.5) k/mm3 Monocytes # 1.1 H (0.0-1.0) k/mm3 PT 21.0 H (9.1-10.7) Seconds INR (Anticoag Therapy) 2.19 H (0.92-1.08) INR - Exam Constitutional: Present: Alert, Cooperative, Well developed, Well nourished, No distress, Elderly ENT Exam: Present: normal ENT inspection, pharynx normal, TMs normal, hard of hearing Neck: Present: non-tender, full range of motion, supple, normal inspection, trachea midline Respiratory: Present: chest non-tender, lungs clear, normal breath sounds, no respiratory distress, no accessory muscle use Cardiovascular/Chest: Present: normal peripheral pulses, no chest tenderness, no edema, no gallop, no JVD, no murmur, no rub, irregularly irregular Abdomen: Present: Normal bowel sounds, soft, nontender, nondistended, no rebound tenderness, no hepatospenomegaly, no masses /Rectal: Present: Exam deferred Extremity: Present: normal range of motion, non-tender, no pedal edema, no calf tenderness, other - Large hematoma on left upper extremity Skin Exam: Present: normal color, warm/dry, no cyanosis Lymphatic: Present: no adenopathy Neurologic: Present: inspector wire rope II-XII nml as tested, alert, normal mood/affect, disoriented x 3 Appearance: Present: appropriate appearance, neat, impaired insight, impaired recent memory, impaired remote memory Eye contact: Present: cooperative, good eye contact, normal speech Thoughts: Present: normal thought pattern, no apparent hallucination Assessment/Plan Plan Narrative: Patient remains in stable condition, there has not been any recurrence of fever, and echo results are pending to rule out endocarditis. In the meantime we will continue with IV antibiotics specifically Vanco and Rocephin and continue to monitor him closely. - Problems/Diagnosis (1) CHF (congestive heart failure) Problem: Resolved Qualifiers: Heart failure type: systolic (2) Community acquired bacterial pneumonia Problem: Suspected (3) Falls frequently Problem: Chronic (4) Atrial fibrillation Problem: Chronic Qualifiers: Atrial fibrillation type: chronic Qualified Code(s): I48.2 - Chronic atrial fibrillation (5) Balance disorder Problem: Chronic (6) Leukocytosis Problem: Acute (7) CRP elevated Problem: Acute (8) Bacteremia Problem: Acute (9) Bacteremia due to Gram-positive bacteria Problem: Acute (10) H/O heart valve replacement with bioprosthetic valve Problem: Acute
[2018-11-07 12:07] LABS: Band 2 % (0-2.0); Dohle Bodies 2+; Immature Granulocyte 2 (0-1); Lymphocyte 3 % (20-51); Neutrophil 93 % (42-75); Neutrophil # 18.4 K/mm3 (1.3-6.0); Platelet Estimate Normal (NORMAL)
[2018-11-07 12:08] LABS: Giant Platelets 1+
[2018-11-07 12:23] LABS: INR 1.65 INR (0.92-1.08)
[2018-11-07] MEDS: CEFEPIME HCL 2 GM in DEXTROSE 5 % IN WATER 100 ML IV SCH ×2 (12:48)
[2018-11-07] MEDS: FUROSEMIDE 40 MG TABLET PO SCH (14:31)
[2018-11-07] MEDS ORDERED: WARFARIN SODIUM 2 MG TABLET PO SCH (17:00)
[2018-11-07] MEDS: WARFARIN SODIUM 4 MG TABLET PO SCH (17:25)
[2018-11-07] MEDS: MIRTAZAPINE 15 MG TABLET PO SCH (21:27)
[2018-11-08] MEDS: VANCOMYCIN HCL 1 GM in DEXTROSE 5 % IN WATER 250 ML IV SCH ×4 (00:02→13:30)
[2018-11-08] MEDS ORDERED: VANCOMYCIN HCL LEVEL XX ONE (00:30)
[2018-11-08 05:43] LABS: Prothrombin Time (Patient) 14.7 Seconds (9.1-10.7)
[2018-11-08 05:53] LABS: Hematocrit 26.7 % (42.0-52.0); Hemoglobin 8.6 gm/dL (13.5-18.0); Mean Corpuscular Hgb Conc 32.2 g/dl (32-36); Mean Platelet Volume 9.3 fl (8-11.3); Neutrophil # 13.6 K/mm3 (1.3-6.0); Neutrophil % 85.2 % (42-75.0); Platelet Count 146 K/mm3 (150-450); Red Blood Count 2.87 M/mm3 (4.7-6.0); Red Cell Distribution Width 14.8 % (11.5-14.0); White Blood Count 15.9 K/mm3 (4.0-10.5)
[2018-11-08] MEDS: LEVOTHYROXINE SODIUM 137 MCG TABLET PO SCH (05:56)
[2018-11-08 06:04] LABS: INR 1.51 INR (0.92-1.08)
[2018-11-08] MEDS: MULTIVIT-MIN/FA/LYCOPEN/LUTEIN 1 TAB TABLET PO SCH (08:32)
[2018-11-08] MEDS: ASPIRIN 81 MG TAB.CHEW PO SCH (08:32)
[2018-11-08] MEDS: DOCUSATE SODIUM 100 MG CAPSULE PO SCH (08:32)
[2018-11-08] MEDS: FERROUS SULFATE 325 MG TABLET PO SCH (08:32)
[2018-11-08] MEDS: CALCIUM CARBONATE/VITAMIN D3 1 TAB TABLET PO SCH (08:32)
[2018-11-08] MEDS: CARVEDILOL 6.25 MG TABLET PO SCH ×2 (08:33→21:14)
[2018-11-08] MEDS: SACCHAROMYCES BOULARDII 250 MG CAPSULE PO SCH ×2 (08:33→21:14)
[2018-11-08] MEDS: FUROSEMIDE 40 MG TABLET PO SCH (08:35)
[2018-11-08] MEDS: FAMOTIDINE 20 MG TABLET PO SCH (08:37)
[2018-11-08] MEDS: CEFEPIME HCL 2 GM in DEXTROSE 5 % IN WATER 100 ML IV SCH ×2 (12:50)
--- NOTE | 2018-11-08 14:58 | PN ---
Subjective - Date and Time Seen Date: 11/08/18 Time: 14:45 Objective Objective Narrative: 82-year-old male admitted for acute bacteremia was evaluated at bedside and was found to be afebrile and in no acute distress. Patient has been undergoing inpatient hospital physical therapy, and according to the physical therapist he has significant issues with balance which makes it unsafe for him to ambulate alone and a very high fall risk. Therefore discharge planning is underway for placement possibly in an assisted living facility or group home, somewhere where he can undergo ongoing physical therapy to address issues with balance and ambulation. Clinically patient is showing improvement, this morning's labs demonstrated a downward trend of his WBCs since his IV antibiotics were optimized and there has been no recurrence of fever or chills. So we will continue IV Vanco and IV cefepime. Follow-up labs have been ordered for tomorrow morning. In the meantime we will continue with inpatient physical therapy and discontinue any IV fluids since patient was found to have pedal edema under today's evaluation. We will also discontinue any furosemide due to ongoing hypotension. We will continue to monitor the patient closely. - Review of Systems Generalized/Overall Review: Reports: No Symptoms Reported EENTM: Reports: No Symptoms Reported Respiratory: Reports: No Symptoms Reported Cardiac: Reports: No Symptoms Reported Abdominal: Reports: No Symptoms Reported Genitourinary Symptoms: Reports: No Symptoms Reported Musculoskeletal Complaints: Reports: No Symptoms Reported Neurological: Reports: No Symptoms Reported Skin: Reports: No Symptoms Reported Endocrine: Reports: No Symptoms Reported - Vitals Vitals: Last Vital Signs Temp 36.4 C 11/08/18 13:43 Pulse 89 11/08/18 13:43 Resp 18 11/08/18 13:43 BP 108/66 11/08/18 13:43 Pulse Ox 94 11/08/18 13:43 - Abnormal Lab Findings Abnormal Lab Findings: Abnormal Lab Results 11/08/18 11/08/18 11/08/18 Range/Units 00:28 05:31 05:31 WBC 15.9 H (4.0-10.5) K/mm3 RBC 2.87 L (4.7-6.0) M/mm3 Hgb 8.6 L (13.5-18.0) gm/dL Hct 26.7 L (42.0-52.0) % RDW 14.8 H (11.5-14.0) % Plt Count 146 L (150-450) K/mm3 Immature Gran % (Auto) 2.10 H (0.001-0.429) % Immature Gran # (Auto) 0.34 H (0.000-0.0310) K/mm3 Neutrophils % 85.2 H (42-75.0) % Lymphocytes % 4.0 L (20-51) % Neutrophils # 13.6 H (1.3-6.0) K/mm3 Lymphocytes # 0.63 L (1.5-3.5) k/mm3 Monocytes # 1.1 H (0.0-1.0) k/mm3 PT 14.7 H (9.1-10.7) Seconds INR (Anticoag Therapy) 1.51 H (0.92-1.08) INR Vancomycin Trough 23.3 H (10.0-20.0) mcg/mL - Exam Constitutional: Present: Alert, Oriented x3, Cooperative, Well developed, Well nourished, No distress ENT Exam: Present: normal ENT inspection, hearing grossly normal, pharynx normal, TMs normal Neck: Present: non-tender, full range of motion, supple, normal inspection, trachea midline Breasts: Present: Exam deferred Respiratory: Present: chest non-tender, lungs clear, normal breath sounds, no respiratory distress, no accessory muscle use Cardiovascular/Chest: Present: normal peripheral pulses, regular rate, rhythm, no chest tenderness, no edema, no gallop, no JVD, no murmur, no rub Abdomen: Present: soft, nontender, nondistended, no rebound tenderness, no hepatospenomegaly, no masses, obese /Rectal: Present: Exam deferred Extremity: Present: normal range of motion, non-tender, no calf tenderness, normal capillary refill, pedal edema - Bilateral 2+ pedal edema with large hematoma on left lower extremity, other - Large hematoma on left lower extremity Skin Exam: Present: warm/dry, no cyanosis, other - Large hematoma on left upper and lower extremity Lymphatic: Present: no adenopathy Neurologic: Present: product technician II-XII nml as tested, no motor/sensory deficits, alert, normal mood/affect, abnormal gait - Unsteady gait due to problems with balance, disoriented x 3 Appearance: Present: impaired insight, impaired recent memory, impaired remote memory Eye contact: Present: cooperative, good eye contact, normal speech Thoughts: Present: normal mood /affect Assessment/Plan Plan Narrative: We will reevaluate labs in the morning and make all necessary changes, will also continue to work on discharge planning after to determine where patient will go. Patient's INR was found to be subtherapeutic on today's lab we will administer warfarin and recheck levels in the morning. Echocardiogram ordered to rule out endocarditis was negative for pericarditis, recommendation to do a follow-up LEDY was made but it is not considered necessary at the moment. Abnormal heart sounds such as heart murmurs are not heard on auscultation and patient has not presented any signs or symptoms indicating endocarditis. We will continue to monitor him. - Problems/Diagnosis (1) CHF (congestive heart failure) Problem: Chronic Qualifiers: Heart failure type: systolic (2) Community acquired bacterial pneumonia Problem: Suspected (3) Falls frequently Problem: Chronic (4) Atrial fibrillation Problem: Chronic Qualifiers: Atrial fibrillation type: chronic Qualified Code(s): I48.2 - Chronic atrial fibrillation (5) Balance disorder Problem: Chronic (6) Leukocytosis Problem: Acute (7) CRP elevated Problem: Acute (8) Bacteremia Problem: Acute (9) Bacteremia due to Gram-positive bacteria Problem: Acute (10) H/O heart valve replacement with bioprosthetic valve Problem: Acute
[2018-11-08] MEDS: WARFARIN SODIUM 4 MG TABLET PO SCH (16:17)
[2018-11-08] MEDS: MIRTAZAPINE 15 MG TABLET PO SCH (21:14)
[2018-11-09] MEDS: VANCOMYCIN HCL 1 GM in DEXTROSE 5 % IN WATER 250 ML IV SCH ×2 (01:26)
[2018-11-09] MEDS: LEVOTHYROXINE SODIUM 137 MCG TABLET PO SCH (05:27)
[2018-11-09 06:05] LABS: Anion Gap 12.2 mmol/L (6.8-13.8); BUN/Creatinine Ratio 15.3 (9.0-21.6); Calcium * 7.6 mg/dL (7.9-10.9); Carbon Dioxide 22.9 mmol/L (24-32.6); Potassium 3.1 mmol/L (3.4-4.6)
[2018-11-09 06:19] LABS: Hematocrit 26.2 % (42.0-52.0); Hemoglobin 8.6 gm/dL (13.5-18.0); Mean Cell Volume 92.9 fl (78-100); Mean Corpuscular Hemoglobin 30.5 pg (27-31); Mean Corpuscular Hgb Conc 32.8 g/dl (32-36); Mean Platelet Volume 9.8 fl (8-11.3); Platelet Count 148 K/mm3 (150-450); Red Blood Count 2.82 M/mm3 (4.7-6.0); Red Cell Distribution Width 15.1 % (11.5-14.0); White Blood Count 20.8 K/mm3 (4.0-10.5)
[2018-11-09 06:27] LABS: Total Cells Counted 100
[2018-11-09 06:49] LABS: Prothrombin Time (Patient) 14.7 Seconds (9.1-10.7)
[2018-11-09 06:51] LABS: INR 1.51 INR (0.92-1.08)
[2018-11-09 06:56] LABS: Atypical (Reactive) Lymph 1 % (0-2); Lymphocyte 1 % (20-51); Monocyte 5 % (0-9); Neutrophil 93 % (42-75); Neutrophil # 19.3 K/mm3 (1.3-6.0)
[2018-11-09 06:57] LABS: Anisocytosis 1+; Hypochromia 1+; Ovalocytes 1+; Platelet Estimate Normal (NORMAL)
[2018-11-09] MEDS ORDERED: POTASSIUM CHLORIDE 20 MEQ TABLET.SA PO ONE (08:37)
[2018-11-09] MEDS ORDERED: FUROSEMIDE 10 MG/ML VIAL IV ONE (08:54)
[2018-11-09] MEDS ORDERED: PIPERACILLIN SODIUM/TAZOBACTAM 3.375 GM in DEXTROSE 5 % IN WATER 100 ML IV SCH ×2 (09:00)
[2018-11-09] MEDS: SACCHAROMYCES BOULARDII 250 MG CAPSULE PO SCH (09:18)
[2018-11-09] MEDS: MULTIVIT-MIN/FA/LYCOPEN/LUTEIN 1 TAB TABLET PO SCH (09:18)
[2018-11-09] MEDS: ASPIRIN 81 MG TAB.CHEW PO SCH (09:18)
[2018-11-09] MEDS: FAMOTIDINE 20 MG TABLET PO SCH (09:19)
[2018-11-09] MEDS: FERROUS SULFATE 325 MG TABLET PO SCH (09:19)
[2018-11-09] MEDS: DOCUSATE SODIUM 100 MG CAPSULE PO SCH (09:19)
[2018-11-09] MEDS: CALCIUM CARBONATE/VITAMIN D3 1 TAB TABLET PO SCH (09:19)
[2018-11-09] MEDS: CARVEDILOL 6.25 MG TABLET PO SCH (09:20)
--- NOTE | 2018-11-09 10:15 | PN ---
Subjective - Date and Time Seen Date: 11/09/18 Time: 10:00 Subjective Narrative: Patient rambles on and on and does not make much sense but appears comfortable. Objective Objective Narrative: 82-year-old male admitted for acute bacteremia was evaluated at bedside and was found to be afebrile and in no acute distress. Patient was noted to be mildly short of breath this morning and he had a respiratory rate of 26, however he continues to saturate adequately on room air. Crackles were heard on his left lung base at bedside evaluation today, so a dose of Lasix was ordered. However we must be careful to monitor his blood pressure since he is mildly hypotensive. Blood culture which was growing what is confirmed to be staph epidermidis is now growing another organism in the second tube. Therefore IV antibiotics were optimized and vancomycin was discontinued, linezolid was started as well as Flagyl. Follow-up labs were ordered for tomorrow morning to evaluate his WBCs and his electrolytes since patient was also found to be mildly hypokalemic this morning. Potassium chloride was ordered. INR was subtherapeutic so his warfarin levels be optimized, however a discussion is needed to address his high risk fall and to weigh risks and benefits of continuing on anticoagulants for his atrial fibrillation. I will continue administering the anticoagulant while the patient is in the hospital but I will leave that discussion to his PCP and his family members. Given his worsening leukocytosis and his shortness of breath, chest x-ray was ordered to rule out any abnormalities. We will follow-up with the results and make necessary changes to his treatment. Echocardiogram done here at [facility] revealed possible cardiac valve vegetations my indicate endocarditis, therefore planning for a LEDY for confirmation is underway. It is possible that we might have to transfer patient to another institution where a LEDY is readily available. I will follow-up with family independence case manager to determine what to do next. - Review of Systems Generalized/Overall Review: Reports: No Symptoms Reported EENTM: Reports: No Symptoms Reported Respiratory: Reports: Shortness of Breath Cardiac: Reports: No Symptoms Reported Abdominal: Reports: No Symptoms Reported Genitourinary Symptoms: Reports: No Symptoms Reported Musculoskeletal Complaints: Reports: No Symptoms Reported Neurological: Reports: No Symptoms Reported Skin: Reports: Lesions, Bruising, Other - Large hematoma on left upper and lower extremities Endocrine: Reports: No Symptoms Reported - Vitals Vitals: Last Vital Signs Temp 37.2 C 11/09/18 08:48 Pulse 70 11/09/18 09:20 Resp 26 H 11/09/18 08:48 BP 111/58 11/09/18 09:20 Pulse Ox 100 11/09/18 08:48 - Abnormal Lab Findings Abnormal Lab Findings: Abnormal Lab Results 11/09/18 11/09/18 11/09/18 Range/Units 05:38 05:38 05:38 WBC 20.8 H D (4.0-10.5) K/mm3 RBC 2.82 L (4.7-6.0) M/mm3 Hgb 8.6 L (13.5-18.0) gm/dL Hct 26.2 L (42.0-52.0) % RDW 15.1 H (11.5-14.0) % Plt Count 148 L (150-450) K/mm3 Neutrophils % (Manual) 93 H (42-75) % Lymphocytes % (Manual) 1 L (20-51) % Neutrophils # (Manual) 19.3 H (1.3-6.0) K/mm3 Lymphocytes # (Manual) 0.2 L (1.5-3.5) k/mm3 PT 14.7 H (9.1-10.7) Seconds INR (Anticoag Therapy) 1.51 H (0.92-1.08) INR Potassium 3.1 L D (3.4-4.6) mmol/L Carbon Dioxide 22.9 L (24-32.6) mmol/L Random Glucose 111 H (70-110) mg/dL Calcium 7.6 L (7.9-10.9) mg/dL - Exam Constitutional: Present: Alert, Cooperative, Well developed, Well nourished, No distress, Elderly ENT Exam: Present: normal ENT inspection, pharynx normal, TMs normal, hard of hearing Neck: Present: non-tender, full range of motion, supple, normal inspection, trachea midline Respiratory: Present: decreased breath sounds, crackles - Crackles in left lung base Cardiovascular/Chest: Present: normal peripheral pulses, no chest tenderness, no gallop, no JVD, no murmur, irregularly irregular, edema Abdomen: Present: Normal bowel sounds, soft, nontender, nondistended, no rebound tenderness, no hepatospenomegaly, no masses /Rectal: Present: Exam deferred Extremity: Present: non-tender, no calf tenderness, pedal edema - Bilateral 2+ pedal edema Skin Exam: Present: normal color, warm/dry, no cyanosis Lymphatic: Present: no adenopathy Neurologic: Present: instructional media services technician II-XII nml as tested, no motor/sensory deficits, alert, normal mood/affect, disoriented x 3 Appearance: Present: impaired insight, impaired recent memory, impaired remote memory Eye contact: Present: cooperative, good eye contact, normal speech Thoughts: Present: no apparent hallucination Assessment/Plan Plan Narrative: Patient will be treated with IV Lasix with careful monitoring of blood pressure. We will follow up with labs in the morning to evaluate white count and electrolytes. Planning on LEDY is underway, it is possible that we transfer patient to [place] to rule out endocarditis. In the meantime we will continue to monitor him closely and follow-up on chest x-ray results. - Problems/Diagnosis (1) CHF (congestive heart failure) Problem: Chronic Qualifiers: Heart failure type: systolic (2) Community acquired bacterial pneumonia Problem: Suspected (3) Falls frequently Problem: Chronic (4) Atrial fibrillation Problem: Chronic Qualifiers: Atrial fibrillation type: chronic Qualified Code(s): I48.2 - Chronic atrial fibrillation (5) Balance disorder Problem: Chronic (6) Leukocytosis Problem: Acute (7) CRP elevated Problem: Acute (8) Bacteremia Problem: Acute (9) Bacteremia due to Gram-positive bacteria Problem: Acute (10) H/O heart valve replacement with bioprosthetic valve Problem: Acute (11) Suspected endocarditis Problem: Acute
[2018-11-09] MEDS ORDERED: metroNIDAZOLE/SODIUM CHLORIDE 500 MG/100 ML BAG IV SCH (11:00)
[2018-11-09] MEDS ORDERED: LINEZOLID IN DEXTROSE 5% 600 MG/300 ML BAG IV SCH (12:00)
[2018-11-09] MEDS: CEFEPIME HCL 2 GM in DEXTROSE 5 % IN WATER 100 ML IV SCH ×2 (13:09)
--- NOTE | 2018-11-09 13:23 | DS ---
Transfer Discharge Summary - Diagnosis(s)/Problems (1) CHF (congestive heart failure) Problem: Chronic (2) Community acquired bacterial pneumonia Problem: Suspected (3) Falls frequently Problem: Chronic (4) Atrial fibrillation Problem: Chronic (5) Balance disorder Problem: Chronic (6) Leukocytosis Problem: Acute (7) CRP elevated Problem: Acute (8) Bacteremia Problem: Acute (9) Bacteremia due to Gram-positive bacteria Problem: Acute (10) H/O heart valve replacement with bioprosthetic valve Problem: Acute (11) Suspected endocarditis Problem: Acute - Course Description of Stay: 82-year-old male originally admitted for a suspected bronchopneumonia and congestive heart failure, and who is now being treated for acute bacteremia due to staph epidermidis as well as another unknown bacteria after blood cultures grew numerous organisms was evaluated at bedside and was found to be afebrile and in no acute distress. Patient was found to be mildly tachypneic but that has since improved since he was evaluated this morning. Given his worsening leukocytosis despite his treatment with IV antibiotics and his risk factors for endocarditis decision to transfer to another facility for a LEDY was made. We are unable to arrange for the procedure to be done here at [facility] given the lack of a pcmh specialist with privilege to do one in the institution so the patient's case was presented to the blast furnace blower information receptionist at [facility] and she graciously accepted the patient. Currently the patient maintains stable vitals and denies any new symptoms, therefore we will proceed with the transfer process and transport the patient in an ambulance to [facility] for further work-up. Patient's INR was found to be subtherapeutic this morning therefore his warfarin dose was optimized, daily monitoring of his INR will be an institution. Procedures Performed: none - Results and Findings Results and Findings: Laboratory Results - last 24 hr 11/09/18 11/09/18 11/09/18 05:38 05:38 05:38 WBC 20.8 H D RBC 2.82 L Hgb 8.6 L Hct 26.2 L MCV 92.9 MCH 30.5 MCHC 32.8 RDW 15.1 H Plt Count 148 L MPV 9.8 Neutrophils % (Manual) 93 H Lymphocytes % (Manual) 1 L Monocytes % (Manual) 5 Neutrophils # (Manual) 19.3 H Lymphocytes # (Manual) 0.2 L Monocytes # (Manual) 1.0 Atypic/Reactive Lymphs 1 Platelet Estimate Normal Hypochromasia 1+ Anisocytosis 1+ Ovalocytes 1+ PT 14.7 H INR (Anticoag Therapy) 1.51 H Sodium 135 Plasma Sodium 135 Potassium 3.1 L D Chloride 103 Carbon Dioxide 22.9 L Anion Gap 12.2 BUN 18 Creatinine 1.18 Est GFR (Non-Af Amer) 63 BUN/Creatinine Ratio 15.3 Random Glucose 111 H Calcium 7.6 L - Medications Medications: Active Medications Acetaminophen (Tylenol) 650 mg PO Q6H PRN PRN Reason: Mild pain (pain scale 1-3) Stop: 12/04/18 21:26 Last Admin: 11/06/18 23:41 Dose: 650 mg Documented by: Aspirin (Aspirin Chewable) 81 mg PO DAILY [facility] Stop: 12/05/18 09:01 Last Admin: 11/09/18 09:18 Dose: 81 mg Documented by: Calcium/Vitamin D (Calcarb 600 With Vitamin D) 1 tab PO DAILY [facility] Stop: 12/05/18 09:01 Last Admin: 11/09/18 09:19 Dose: 1 tab Documented by: Carvedilol (Coreg) 6.25 mg PO BID [facility] Stop: 12/05/18 09:01 Last Admin: 11/09/18 09:20 Dose: 6.25 mg Documented by: Docusate Sodium (Colace) 100 mg PO DAILY [facility] Stop: 12/05/18 09:01 Last Admin: 11/09/18 09:19 Dose: 100 mg Documented by: Famotidine (Pepcid) 20 mg PO DAILY [facility] Stop: 12/08/18 09:01 Last Admin: 11/09/18 09:19 Dose: 20 mg Documented by: Ferrous Sulfate (Ferrous Sulfate) 325 mg PO DAILY [facility] Stop: 12/05/18 09:01 Last Admin: 11/09/18 09:19 Dose: 325 mg Documented by: Sodium Chloride (Sodium Chloride 0.9%) 1,000 mls @ 125 mls/hr IV .Q8H PRN PRN Reason: HYDRATION Stop: 12/04/18 18:27 Last Infusion: 11/07/18 11:42 Dose: Infused Documented by: Cefepime HCl 2 gm/ Dextrose/ (Water) 100 mls @ 200 mls/hr IV Q24H [facility] Stop: 12/07/18 13:01 Last Admin: 11/09/18 13:09 Dose: 200 mls/hr Documented by: Metronidazole (Flagyl) 500 mg in 100 mls @ 100 mls/hr IV Q8H [facility]; Protocol Stop: 12/09/18 11:01 Last Infusion: 11/09/18 12:07 Dose: Infused Documented by: Linezolid/Dextrose (Zyvox) 600 mg in 300 mls @ 600 mls/hr IV Q12H [facility] Stop: 12/09/18 12:01 Last Infusion: 11/09/18 12:59 Dose: Infused Documented by: Levothyroxine Sodium (Synthroid) 137 mcg PO DAILY@0600 [facility] Stop: 12/05/18 06:01 Last Admin: 11/09/18 05:27 Dose: 137 mcg Documented by: Melatonin (Melatonin) 3,000 mcg PO HS PRN PRN Reason: Insomnia Stop: 12/04/18 22:12 Last Admin: 11/05/18 20:34 Dose: 3,000 mcg Documented by: Mirtazapine (Remeron) 15 mg PO HS [facility] Stop: 12/05/18 21:01 Last Admin: 11/08/18 21:14 Dose: 15 mg Documented by: Multivitamins ([employer]) 1 tab PO DAILY [facility] Stop: 12/05/18 09:01 Last Admin: 11/09/18 09:18 Dose: 1 tab Documented by: (Dutasteride 0.5 Mg) 0.5 mg PO DAILY [facility] Stop: 12/05/18 09:01 Last Admin: 11/09/18 09:48 Dose: Not Given Documented by: Saccharomyces Boulardii (Florastor) 250 mg PO BID [facility] Stop: 12/06/18 21:01 Last Admin: 11/09/18 09:18 Dose: 250 mg Documented by: Warfarin Sodium (Coumadin) 4 mg PO [id number] [facility] Stop: 12/07/18 17:01 Last Admin: 11/08/18 16:17 Dose: 4 mg Documented by: Discontinued Medications Diltiazem HCl (Cardizem) 10 mg IV ONCE ONE Stop: 11/04/18 18:33 Last Admin: 11/04/18 18:43 Dose: 10 mg Documented by: Furosemide (Lasix) 40 mg IV BID [facility] Stop: 12/05/18 09:01 Last Admin: 11/05/18 20:22 Dose: Not Given Documented by: Furosemide (Lasix) 40 mg PO DAILY [facility] Stop: 12/07/18 12:46 Last Admin: 11/08/18 08:35 Dose: 40 mg Documented by: Furosemide (Lasix) 40 mg IV ONCE ONE Stop: 11/09/18 08:55 Last Admin: 11/09/18 10:08 Dose: 40 mg Documented by: Ceftriaxone Sodium 1,000 mg/ (Dextrose/Water) 100 mls @ 200 mls/hr IV Q12H [facility]; Protocol Stop: 12/04/18 18:31 Last Admin: 11/04/18 18:58 Dose: Not Given Documented by: Ceftriaxone Sodium 1,000 mg/ (Dextrose/Water) 100 mls @ 200 mls/hr IV Q12H [facility]; Protocol Stop: 12/04/18 19:01 Last Infusion: 11/04/18 19:35 Dose: Infused Documented by: Famotidine 20 mg/ Dextrose/ (Water) 102 mls @ 400 mls/hr IV Q12H [facility] Stop: 12/04/18 22:01 Last Infusion: 11/07/18 11:01 Dose: Infused Documented by: Ceftriaxone Sodium 1,000 mg/ (Dextrose/Water) 100 mls @ 200 mls/hr IV Q24H [facility]; Protocol Stop: 12/05/18 19:01 Last Infusion: 11/06/18 19:13 Dose: Infused Documented by: Sodium Chloride (Sodium Chloride 0.9%) 500 mls @ 500 mls/hr IV .Q1H ONE Stop: 11/05/18 21:17 Last Infusion: 11/05/18 21:28 Dose: Infused Documented by: Vancomycin HCl 1 gm/ Dextrose/ (Water) 250 mls @ 140 mls/hr IV Q12H [facility]; Protocol Stop: 12/06/18 13:01 Last Infusion: 11/09/18 03:15 Dose: Infused Documented by: Lorazepam (Ativan) 1 mg PO ONCE ONE Stop: 11/05/18 20:21 Last Admin: 11/05/18 20:34 Dose: 1 mg Documented by: Potassium Chloride (K-Dur) 40 meq PO ONCE ONE Stop: 11/09/18 08:38 Last Admin: 11/09/18 09:21 Dose: 40 meq Documented by: Vancomycin HCl (Vancomycin Level) 1 XX ONCE ONE Stop: 11/08/18 00:31 Last Admin: 11/08/18 00:43 Dose: Not Given Documented by: Warfarin Sodium (Coumadin) 2 mg PO [id number] [facility] Stop: 12/07/18 17:01 Last Admin: 11/07/18 17:25 Dose: 2 mg Documented by: - Disposition Disposition: Short Term Hospital Inpatient Condition: Stable Discharge Date: 11/09/18 Discharge Time: 13:23
[2018-11-09 13:39] VITALS: BP 99/55
[2018-11-09] MEDS ORDERED: WARFARIN SODIUM 4 MG TABLET PO ONE (17:00)
[2018-11-10] MEDS ORDERED: FUROSEMIDE 10 MG/ML VIAL IV SCH (09:00)
--- NOTE | 2018-11-14 09:53 | ECHO ---
This report is available in the EMR
== END 2018-11-09 14:40 | disposition short-term general hospital (02) | DRG 177 ==
LOC: ER 14:14 → MS 14:14
PROVIDERS: ADMIT Family Medicine; ATTEND Family Medicine
DX: Z95.2 Presence of prosthetic heart valve; I48.2 Chronic atrial fibrillation; R29.6 Repeated falls; J15.6 Pneumonia due to other Gram-negative bacteria; R78.81 Bacteremia; Z91.81 History of falling; I11.0 Hypertensive heart disease with heart failure; I33.9 Acute and subacute endocarditis, unspecified; I50.23 Acute on chronic systolic (congestive) heart failure; Z79.01 Long term (current) use of anticoagulants; E87.6 Hypokalemia; D72.829 Elevated white blood cell count, unspecified
CPT/HCPCS: 36415; 71010; 71020; 71045; 71046; 73502; 80048; 80053; 80202; 81001; 82565; 83519; 83605; 83880; 85007; 85025; 85610; 85730; 86140; 87040; 87077; 87086; 87186; 93005; 93306; 94660; 96365; 96366; 96367; 96375; 96376; 97110; 97116; 97161; 97530; 99285; G0378; J2020